=== PATIENT | male | born 1955 | race Caucasian/White ===

== ENCOUNTER 2017-11-14 18:14 | Emergency (ER) | payer BC ==
[2017-11-14] MEDS ORDERED: Rabies VIRUS VACCINE (Imovax)* 2.5 UNIT/ML 1 ML IM ONE (21:29)
[2017-11-14] MEDS ORDERED: Rabies Vaccine (RabAvert)* 2.5 UNITS VIAL IM ONE (22:00)
--- NOTE | 2017-11-14 22:38 | ED ---
Sahara Edwards Edward, scribed for David Amezquita MD on 11/14/17 at 2030 . Bite Injury/Animal - HPI Summary HPI Summary: 62 y/o male presents to the ED c/o possible rabies exposure. Pt is asymptomatic at this time. Pt was exposed to possible fluid from a racoon around 1 month ago ; pt shot the racoon and when he cleaned his things shortly thereafter he believes he may have been exposed to racoon saliva. Pt had a rabies titer after the exposure which showed he "had no protection". Pt had a rabies shot 7-8 years ago. Pt was sent to the ED by the health department. - History of Current Complaint Chief Complaint: EDGeneral Stated Complaint: GENERAL ILLNESS Hx Obtained From: Patient Onset of Injury: Happened weeks ago Type of Bite: Wild Animal - racoon Has Animal Been Immunized?: N/A Pain Intensity: 0 Aggravating Factor(s): Nothing Alleviating Factor(s): Nothing Associated Signs And Symptoms: Positive: Negative - Allergies/Home Medications Allergies/Adverse Reactions: Allergies Allergy/AdvReac Type Severity Reaction Status Date / Time No Known Allergies Allergy Verified 11/14/17 20:18 PMH/Surg Hx/FS Hx/Imm Hx Previously Healthy: No Cardiovascular History: Denies: Hx Congestive Heart Failure EENT History: Reports: Hx Hearing Aid - Immunization History Date of Tetanus Vaccine: unk Date of Influenza Vaccine: none Infectious Disease History: No Infectious Disease History: Denies: Traveled Outside the [place] in Last 30 Days - Family History Known Family History: Positive: Diabetes - Social History Alcohol Use: None Substance Use Type: Reports: None Smoking Status (MU): Former Smoker Review of Systems Constitutional: Negative Eyes: Negative ENT: Negative Cardiovascular: Negative Respiratory: Negative Gastrointestinal: Negative Genitourinary: Negative Musculoskeletal: Negative Skin: Negative Neurological: Negative Psychological: Normal All Other Systems Reviewed And Are Negative: Yes Physical Exam Triage Information Reviewed: Yes Vital Signs On Initial Exam: Initial Vitals Temp Pulse Resp BP Pulse Ox 98.3 F 84 18 150/98 95 11/14/17 18:17 11/14/17 18:17 11/14/17 18:17 11/14/17 18:17 11/14/17 18:17 Vital Signs Reviewed: Yes Appearance: Positive: Well-Appearing, No Pain Distress Skin: Positive: Warm, Skin Color Reflects Adequate Perfusion, Dry Head/Face: Positive: Normal Head/Face Inspection Eyes: Positive: EOMI, WENDY ENT: Positive: Normal ENT inspection Neck: Positive: Supple, Nontender Cardiovascular: Positive: RRR Abdomen Description: Positive: Nontender, Soft Bowel Sounds: Positive: Present Musculoskeletal: Positive: Normal, Strength/ROM Intact Neurological: Positive: Normal, Sensory/Motor Intact, Alert, Oriented to Person Place, Time Psychiatric: Positive: Affect/Mood Appropriate Diagnostics - Vital Signs Vital Signs Temp Pulse Resp BP Pulse Ox 11/14/17 18:17 98.3 F 84 18 150/98 95 - Laboratory Lab Statement: Any lab studies that have been ordered have been reviewed, and results considered in the medical decision making process. Re-Evaluation - Re-Evaluation 1 Re-Evaluation Time: 21:55 Comment: Discuss plan of care, d/c instructions Bite Injury Course/Dx - Course Course Of Treatment: DISCUSSED WITH RUBI BEJARANO OF [facility]. HE HAS DISCUSSED THE PATIENT'S CASE WITH [facility] AND THEY RECOMMEND A RABIES VACCINE AND NOT THE IMMUNOGLOBULIN AT THIS TIME. JEWEL GAUTHIER F/U WITH [facility] TOMORROW. - Diagnoses Provider Diagnosis: Need for post exposure prophylaxis for rabies Discharge - Discharge Plan Condition: Stable Disposition: HOME Patient Education Materials: Rabies Vaccine (By injection) Referrals: Paul BARRON,Cm Lewis [Primary Care Provider] - Additional Instructions: FOLLOW UP WITH THE [facility] TOMORROW, 11/15/17, TO DETERMINE IF YOU NEED ANY FURTHER RABIES VACCINATIONS. RETURN TO THE EMERGENCY DEPARTMENT FOR ANY WORSENING OF YOUR CONDITION OR QUESTIONS OR CONCERNS. YOUR BLOOD PRESSURE WAS ELEVATED TODAY; FOLLOW UP WITH YOUR PRIMARY CARE DOCTOR WITHIN ONE WEEK. The documentation as recorded by the Sahara calvillo Edward accurately reflects the service I personally performed and the decisions made by me, David Amezquita MD.
[2017-11-14 23:11] VITALS: BP 138/93
== END 2017-11-14 23:10 | disposition home or self-care (01) ==
LOC: ED 18:14
DX: Z20.3 Contact with and (suspected) exposure to rabies (principal); Z87.891 Personal history of nicotine dependence
CPT/HCPCS: 90675; 96372; 99282

== ENCOUNTER 2017-11-17 13:50 | Emergency (ER) | payer BC ==
[2017-11-17] MEDS ORDERED: Rabies VIRUS VACCINE (Imovax)* 2.5 UNIT/ML 1 ML IM ONE (13:56)
[2017-11-17 14:10] VITALS: BP 139/88
--- NOTE | 2017-11-17 14:10 | UC ---
Skin Complaint HPI - HPI Summary HPI Summary: Pt presents in need of a rabies vaccine. He tells me that about 1 month ago he noticed a raccoon acting strangely in his back yard. He shot it, but then went to clean it up. He got nervous about carlos a rabies, so he contacted the health department who advised him to get the rabies vaccine. He has already had one vaccine 3 days ago. He has no skin puncture or symptoms. - History of Current Complaint Chief Complaint: UCGeneralIllness Time Seen by Provider: 11/17/17 13:56 Stated Complaint: RABIES VACCINE Hx Obtained From: Patient Current Severity: None Pain Intensity: 0 - Allergy/Home Medications Allergies/Adverse Reactions: Allergies Allergy/AdvReac Type Severity Reaction Status Date / Time No Known Allergies Allergy Verified 11/17/17 14:10 Home Medications: Home Medications Lisinopril [Lisinopril 2.5 MG-] 2.5 mg PO DAILY 11/17/17 [History Confirmed ] Review of Systems Constitutional: Negative Skin: Negative Respiratory: Negative Cardiovascular: Negative Gastrointestinal: Negative Musculoskeletal: Negative Neurological: Negative Psychological: Negative All Other Systems Reviewed And Are Negative: Yes PMH/Surg Hx/FS Hx/Imm Hx Previously Healthy: Yes Cardiovascular History: Hypertension - Surgical History Surgical History: None - Family History Known Family History: Positive: Diabetes - Social History Occupation: Employed Full-time Lives: With Family Alcohol Use: None Substance Use Type: None Smoking Status (MU): Former Smoker Physical Exam - Summary Physical Exam Summary: GENERAL: NAD. WDWN. No pain distress. SKIN: No rashes, sores, ulcers, masses, lesions. HEENT: Head: AT/NC Eyes: EOM intact. Conjunctiva clear without inflammation or discharge. Ears: Hearing grossly normal. TMs intact, no bulging, erythema, or edema. Nose: Nasal mucosa pink and moist. NTTP maxillary and frontal sinus. Throat: Posterior oropharynx without exudates, erythema, or tonsillar enlargement. Uvula midline. NECK: Supple. Nontender. No lymphadenopathy. CHEST: CTAB. No r/r/w. No accessory muscle use. Breathing comfortably and in no distress. CV: RRR. Without m/r/g. Pulses intact. Brisk cap refill. NEURO: Alert. CN II-XII grossly intact. PSYCH: Age appropriate behavior. Triage Information Reviewed: Yes Vital Signs: Initial Vital Signs Temp 98.2 F 11/17/17 14:04 Pulse 111 11/17/17 14:04 Resp 18 11/17/17 14:04 BP 139/88 11/17/17 14:04 Pulse Ox 97 11/17/17 14:04 Course/Dx - Course Course Of Treatment: Rabies vaccine given. - Diagnoses Provider Diagnoses: Rabies vaccine administration Discharge - Discharge Plan Condition: Stable Disposition: HOME Patient Education Materials: Rabies Vaccine (ED) Referrals: Paul BARRON,Cm Lewis [Primary Care Provider] - Additional Instructions: If you develop a fever, shortness of breath, chest pain, new or worsening symptoms - please call your PCP or go to the ED. Your blood pressure was high at todays visit. Please see your primary provider within 4 weeks for recheck and re-evaluation.
== END 2017-11-17 14:32 | disposition home or self-care (01) ==
LOC: UCEAST 13:50
DX: Z23 Encounter for immunization (principal); Z87.891 Personal history of nicotine dependence
CPT/HCPCS: 90471; 99211; G0463